=== PATIENT | male | born 1960 | race Hispanic/Latino ===

== ENCOUNTER 2022-09-21 19:05 | Inpatient (IN) | payer BC ==
[~2022-09-21] VITALS: Ht 172.7 cm; Wt 120.0 kg
[~2022-09-21 19:05] MED LIST: DICL100T85 PO; IRBE150T51 PO
[2022-09-21 20:00] LABS: BASOPHILS % (AUTO) 0.3 % (0.0-5.0); HEMATOCRIT 48.3 % (42-54); MEAN CORPUSCULAR HEMOGLOBIN 30.5 pg (27.0-33.0); MEAN CORPUSCULAR HGB CONC 35.6 g/dL (32.0-36.0); MEAN CORPUSCULAR VOLUME 85.6 fL (79-99); NEUTROPHILS % (AUTO) 79.4 % (40.0-77.0); PLATELET COUNT (AUTO) 220 K/uL (130-400); RED BLOOD CELL COUNT(AUTO) 5.64 MIL/uL (4.50-6.20); RED CELL DISTRIBUTION WIDTH 12.3 % (11.0-15.5); WHITE BLOOD COUNT (AUTO) 7.8 K/uL (4.8-10.8)
[2022-09-21 20:13] LABS: ALANINE AMINOTRANSFERASE 29 U/L (12-78); ALBUMIN 3.5 g/dL (3.5-5.0); ASPARTATE AMINOTRANSFERASE 19 U/L (10-37); CARBON DIOXIDE 26 mmol/L (21-32); CHLORIDE 93 mmol/L (101-111); CREATININE 1.3 mg/dL (0.5-1.5); GLOMERULAR FILTR. RATE CALC 59 mL/min (>60); POTASSIUM 3.9 mmol/L (3.5-5.1); SODIUM SERUM 133 mmol/L (136-145); UREA NITROGEN, BLOOD 23 mg/dL (7-18)
[2022-09-21 20:15] LABS: LIPASE < 50 U/L (114-286)
[2022-09-21 20:16] LABS: GLUCOSE,RANDOM 431 mg/dL (70-105)
[2022-09-21] MEDS ORDERED: 0.9%NACL 1000ML 1,000 ML IV ONE (20:30)
[2022-09-21] MEDS ORDERED: INSULIN HUMULIN R 100 UNIT/ML 3ML IV ONE (20:30)
[2022-09-21] MEDS ORDERED: MORPHINE 4 MG SYG IM ONE (20:30)
[2022-09-21] MEDS ORDERED: ONDANSETRON 4MG INJ IVP ONE (20:30)
[2022-09-21 21:00] LABS: ABG BASE EXCESS -0.7 mmol/L (-2.0-3.0); ABG HCO3 22.5 mmol/L (21.0-28.0); ABG PCO2 33 mmHg (35-48)
[2022-09-21] MEDS ORDERED: ACETAMINOPHEN 325 MG TAB PO PRN (22:30)
[2022-09-21] MEDS ORDERED: ONDANSETRON 4MG INJ IV PRN (22:30)
[2022-09-21 23:06] LABS: INR 1.15 (0.85-1.15); PROTHROMBIN TIME 12.4 SEC (9.6-11.6)
[2022-09-21 23:18] LABS: APPEARANCE,URINE CLEAR (CLEAR); BILIRUBIN,URINE NEGATIVE (NEGATIVE); COLOR,URINE LIGHT-YELLOW (YELLOW); GLUCOSE, URINE (UA) >=1000 mg/dL (NEGATIVE); KETONES,URINE 5 mg/dL (NEGATIVE); LEUKOCYTE ESTERASE ,URINE NEGATIVE Leu/uL (NEGATIVE); MUCUS,URINE RARE LPF (None Seen); NITRATE,URINE NEGATIVE (NEGATIVE); OCCULT BLOOD,URINE SMALL (NEGATIVE); PROTEIN,URINE 30 mg/dL (NEGATIVE); SQUAMOUS EPITHELIAL CELL,UR RARE /HPF (0-2); UROBILINOGEN,URINE 0.2 mg/dL (0.2-1.0)
[2022-09-21] MEDS: LACTATED RINGERS 1000ML 1,000 ML IV SCH (23:43)
[2022-09-21] MEDS: MORPHINE 4 MG SYG IV PRN (23:43)
[2022-09-22 02:53] LABS: BASOPHILS % (AUTO) 0.6 % (0.0-5.0); HEMATOCRIT 44.7 % (42-54); LYMPHOCYTES % (AUTO) 17.1 % (21.0-51.0); MEAN CORPUSCULAR HEMOGLOBIN 30.8 pg (27.0-33.0); MEAN CORPUSCULAR HGB CONC 35.1 g/dL (32.0-36.0); MEAN CORPUSCULAR VOLUME 87.6 fL (79-99); MONOCYTES % (AUTO) 19.1 % (3.0-13.0); NEUTROPHILS % (AUTO) 62.8 % (40.0-77.0); PLATELET COUNT (AUTO) 197 K/uL (130-400); RED CELL DISTRIBUTION WIDTH 12.3 % (11.0-15.5); WHITE BLOOD COUNT (AUTO) 5.2 K/uL (4.8-10.8)
[2022-09-22] MEDS ORDERED: ATOR40TA69 PO (03:03)
[2022-09-22] MEDS ORDERED: METO50TA18 PO (03:03)
[2022-09-22] MEDS ORDERED: ASPI-1026 PO (03:03)
[2022-09-22] MEDS ORDERED: IRBE300T43 PO (03:03)
[2022-09-22] MEDS ORDERED: HYDR12.54 PO (03:03)
[2022-09-22] MEDS ORDERED: METF-444 PO (03:03)
[2022-09-22 03:21] LABS: CREATININE 1.2 mg/dL (0.5-1.5); MAGNESIUM 1.6 mg/dL (1.80-2.40); PHOSPHORUS 4.2 mg/dL (2.5-4.9); POTASSIUM 3.7 mmol/L (3.5-5.1)
[2022-09-22 03:48] LABS: HEMOGLOBIN A1C 12.8 % (4.0-6.0)
[2022-09-22 04:00] VITALS: BP 155/97
[2022-09-22] MEDS ORDERED: LIDOCAINE HCL-MPF 1% 2ML VIAL IV PRN (04:30)
[2022-09-22] MEDS ORDERED: MAGNESIUM 2GM PREMIX 50ML 50 ML IV ONE (04:50)
[2022-09-22] MEDS ORDERED: MAGNESIUM 2GM PREMIX 50ML 50 ML IV PRN (05:30)
[2022-09-22] MEDS: MORPHINE 2 MG SYG IV PRN ×3 (05:31→17:09)
[2022-09-22] MEDS: METOCLOPRAMIDE 10 MG/2 ML VIAL IVP SCH ×3 (06:31→16:56)
[2022-09-22] MEDS: POTASSIUM CHLORIDE 10MEQ/100ML 100 ML IV PRN (06:32)
[2022-09-22] MEDS: INSULIN HUMULIN R 100 UNIT/ML 3ML SQ SCH ×4 (06:35→21:41)
[2022-09-22 07:30] VITALS: BP 151/95
[2022-09-22] MEDS: FAMOTIDINE 20MG VIAL IV SCH (08:12)
[2022-09-22 11:30] VITALS: BP 144/89
[2022-09-22] MEDS: LACTATED RINGERS 1000ML 1,000 ML IV SCH ×2 (14:49→22:23)
[2022-09-22 15:30] VITALS: BP 133/83
[2022-09-22 20:17] VITALS: BP 157/81
[2022-09-22] MEDS: METOPROLOL TARTRATE 50 MG TAB PO SCH (20:53)
[2022-09-22] MEDS: MORPHINE 4 MG SYG IV PRN (21:01)
[2022-09-22] MEDS: INSULIN GLARGINE 100 UNITS/ML 10 ML VIAL SQ SCH (21:37)
[2022-09-23] VITALS (7 sets, daily range): BP systolic 133–181; BP diastolic 78–102
[2022-09-23] MEDS: LACTATED RINGERS 1000ML 1,000 ML IV SCH ×3 (04:02→16:40)
[2022-09-23] MEDS: MORPHINE 2 MG SYG IV PRN ×3 (05:09→16:31)
[2022-09-23] MEDS: INSULIN HUMULIN R 100 UNIT/ML 3ML SQ SCH ×4 (06:20→20:51)
[2022-09-23] MEDS: ATORVASTATIN 40 MG TABLET PO SCH (08:16)
[2022-09-23] MEDS: ASPIRIN 81MG CHEW TAB PO SCH (08:16)
[2022-09-23] MEDS: METOPROLOL TARTRATE 50 MG TAB PO SCH ×2 (08:16→20:47)
[2022-09-23] MEDS: FAMOTIDINE 20MG VIAL IV SCH (08:16)
[2022-09-23] MEDS: HYDROCHLOROTHIAZIDE 25 MG TABLET PO SCH (08:16)
[2022-09-23] MEDS ORDERED: ASPIRIN 325MG TAB PO SCH (09:00)
[2022-09-23] MEDS: INSULIN GLARGINE 100 UNITS/ML 10 ML VIAL SQ SCH (20:50)
[2022-09-23] MEDS: MORPHINE 4 MG SYG IV PRN (23:24)
[2022-09-24] MEDS: LACTATED RINGERS 1000ML 1,000 ML IV SCH ×4 (00:02→20:15)
[2022-09-24 04:23] VITALS: BP 140/99
[2022-09-24] MEDS: MORPHINE 2 MG SYG IV PRN (05:45)
[2022-09-24] MEDS: INSULIN HUMULIN R 100 UNIT/ML 3ML SQ SCH ×4 (06:13→21:13)
[2022-09-24 07:35] VITALS: BP 149/99
[2022-09-24] MEDS: METOPROLOL TARTRATE 50 MG TAB PO SCH ×2 (09:27→20:14)
[2022-09-24] MEDS: FAMOTIDINE 20MG VIAL IV SCH (09:27)
[2022-09-24] MEDS: ASPIRIN 81MG CHEW TAB PO SCH (09:27)
[2022-09-24] MEDS: ATORVASTATIN 40 MG TABLET PO SCH (09:27)
[2022-09-24] MEDS: HYDROCHLOROTHIAZIDE 25 MG TABLET PO SCH (09:28)
[2022-09-24] MEDS: MORPHINE 4 MG SYG IV PRN ×2 (09:53→17:44)
[2022-09-24 11:09] VITALS: BP 131/86
[2022-09-24 15:08] VITALS: BP 134/81
[2022-09-24] MEDS: INSULIN GLARGINE 100 UNITS/ML 10 ML VIAL SQ SCH (21:13)
[2022-09-24 21:45] VITALS: BP 143/83
[2022-09-25] VITALS (30 sets, daily range): BP systolic 90–151; BP diastolic 56–95
[2022-09-25] MEDS: LACTATED RINGERS 1000ML 1,000 ML IV SCH ×2 (02:42→16:00)
[2022-09-25] MEDS: INSULIN HUMULIN R 100 UNIT/ML 3ML SQ SCH ×5 (06:42→21:32)
[2022-09-25] MEDS: ATORVASTATIN 40 MG TABLET PO SCH (08:26)
[2022-09-25] MEDS: ASPIRIN 81MG CHEW TAB PO SCH (08:27)
[2022-09-25] MEDS: HYDROCHLOROTHIAZIDE 25 MG TABLET PO SCH (08:27)
[2022-09-25] MEDS: METOPROLOL TARTRATE 50 MG TAB PO SCH ×2 (08:27→21:30)
[2022-09-25] MEDS: FAMOTIDINE 20MG VIAL IV SCH (08:28)
[2022-09-25] MEDS ORDERED: KETOROLAC 30MG VIAL (30MG/ML) ONE ×2 (10:04→11:55)
[2022-09-25] MEDS ORDERED: LIDOCAINE HCL-MPF 1% 5ML AMP IJ ONE (10:05)
[2022-09-25] MEDS ORDERED: PROPOFOL 10 MG/ML 20ML VIAL IV ONE (10:05)
[2022-09-25] MEDS ORDERED: MIDAZOLAM HCL 1 MG/ML 2ML VIAL ONE ×2 (10:06→14:19)
[2022-09-25] MEDS ORDERED: ROCURONIUM 10MG/1ML SYR 10 MG/ML ML ONE (10:06)
[2022-09-25] MEDS ORDERED: FENTANYL CITRATE PF 50 MCG/1 ML 5ML AMP IV ONE (10:07)
[2022-09-25] MEDS ORDERED: PHENYLEPHRINE HCL 10 MG/ML 1ML VIAL IV ONE (10:08)
[2022-09-25] MEDS ORDERED: ALBUMIN (HUMAN) 5% 250 ML IV ONE ×2 (10:33→10:52)
[2022-09-25] MEDS ORDERED: ONDANSETRON 4MG INJ ONE (11:55)
[2022-09-25] MEDS ORDERED: SUCCINYLCHOLINE CHLORIDE 20 MG/ML 10 ML VIAL ONE (11:55)
[2022-09-25] MEDS ORDERED: LABETALOL 20MG VIAL IV ONE (12:06)
[2022-09-25] MEDS ORDERED: SUGAMMADEX SODIUM 200 MG/2 ML VIAL IV ONE (12:06)
[2022-09-25] MEDS ORDERED: HYDROMORPHONE 1 MG INJ ONE (14:25)
[2022-09-25] MEDS ORDERED: HALOPERIDOL INJ 5 MG/ML VIAL IV SCH (14:43)
[2022-09-25] MEDS: CEFAZOLIN SODIUM 2 GM VIAL IVPB SCH (16:36)
[2022-09-25] MEDS: KETOROLAC 30MG VIAL (30MG/ML) IVP SCH (17:39)
[2022-09-25] MEDS: INSULIN GLARGINE 100 UNITS/ML 10 ML VIAL SQ SCH (21:31)
[2022-09-26] VITALS: BP 103/71
[2022-09-26] MEDS: KETOROLAC 30MG VIAL (30MG/ML) IVP SCH ×4 (02:19→17:50)
[2022-09-26] MEDS: LACTATED RINGERS 1000ML 1,000 ML IV SCH (02:19)
[2022-09-26] MEDS: CEFAZOLIN SODIUM 2 GM VIAL IVPB SCH ×3 (02:20→19:12)
[2022-09-26 04:00] VITALS: BP 96/61
[2022-09-26 05:36] LABS: BASOPHILS % (AUTO) 0.9 % (0.0-5.0); EOSINOPHILS % (AUTO) 0.4 % (0.0-8.0); MEAN CORPUSCULAR HEMOGLOBIN 30.1 pg (27.0-33.0); MEAN CORPUSCULAR HGB CONC 33.9 g/dL (32.0-36.0); MEAN CORPUSCULAR VOLUME 88.9 fL (79-99); MONOCYTES % (AUTO) 11.6 % (3.0-13.0); NEUTROPHILS % (AUTO) 77.3 % (40.0-77.0); PLATELET COUNT (AUTO) 199 K/uL (130-400); RED BLOOD CELL COUNT(AUTO) 4.05 MIL/uL (4.50-6.20); RED CELL DISTRIBUTION WIDTH 12.5 % (11.0-15.5); WHITE BLOOD COUNT (AUTO) 12.9 K/uL (4.8-10.8)
[2022-09-26 05:51] LABS: ALBUMIN 1.9 g/dL (3.5-5.0); CREATININE 1.2 mg/dL (0.5-1.5); MAGNESIUM 1.5 mg/dL (1.80-2.40); PHOSPHORUS 3.5 mg/dL (2.5-4.9); TOTAL PROTEIN, SERUM 4.8 g/dL (6.0-8.3)
[2022-09-26] MEDS: INSULIN HUMULIN R 100 UNIT/ML 3ML SQ SCH ×3 (06:50→19:12)
[2022-09-26 08:00] VITALS: BP 98/60
[2022-09-26] MEDS: ATORVASTATIN 40 MG TABLET PO SCH (08:37)
[2022-09-26] MEDS: METOPROLOL TARTRATE 50 MG TAB PO SCH ×2 (08:38→21:34)
[2022-09-26] MEDS: FAMOTIDINE 20MG VIAL IV SCH (08:50)
[2022-09-26 08:56] LABS: ABG BASE EXCESS 6.1 mmol/L (-2.0-3.0); ABG HCO3 27.5 mmol/L (21.0-28.0); ABG OXYGEN SATURATION 98.3 % (95.0-99.0); ABG PCO2 31 mmHg (35-48)
[2022-09-26] MEDS ORDERED: MAGNESIUM 2GM PREMIX 50ML 50 ML IV PRN (09:00)
[2022-09-26] MEDS ORDERED: 0.9%NACL 1000ML 1,000 ML IV SCH (09:00)
[2022-09-26] MEDS ORDERED: ZOSYN 3.375GM +NS 50ML IV SCH (09:00)
[2022-09-26 11:24] VITALS: BP 97/57
[2022-09-26] MEDS: ZOSYN 3.375GM +NS 50ML IV SCH ×2 (13:13→21:34)
[2022-09-26 16:00] VITALS: BP 114/72
[2022-09-26] MEDS: POTASSIUM CHLORIDE 10MEQ/100ML 100 ML IV PRN (16:39)
[2022-09-26] MEDS ORDERED: POTASSIUM CHLORIDE 10% ELIXIR 20 MEQ/15 ML UDCUP PO ONE (17:00)
[2022-09-26 19:44] LABS: CREATININE 1.2 mg/dL (0.5-1.5); MAGNESIUM 2.1 mg/dL (1.80-2.40)
[2022-09-26 20:00] VITALS: BP 91/53
[2022-09-26] MEDS: POTASSIUM CHLORIDE 20MEQ/100ML 100 ML IV PRN (21:29)
[2022-09-26] MEDS: LIDOCAINE HCL-MPF 1% 2ML VIAL IV PRN (21:33)
[2022-09-26] MEDS: INSULIN GLARGINE 100 UNITS/ML 10 ML VIAL SQ SCH (21:43)
[2022-09-27] VITALS: BP 107/69
[2022-09-27] MEDS: POTASSIUM CHLORIDE 20MEQ/100ML 100 ML IV PRN (02:10)
[2022-09-27] MEDS: LIDOCAINE HCL-MPF 1% 2ML VIAL IV PRN (02:10)
[2022-09-27] MEDS: KETOROLAC 30MG VIAL (30MG/ML) IVP SCH ×4 (02:13→18:00)
[2022-09-27] MEDS: CEFAZOLIN SODIUM 2 GM VIAL IVPB SCH ×3 (02:14→18:59)
[2022-09-27 04:00] VITALS: BP 110/62
[2022-09-27 05:31] LABS: BASOPHILS % (AUTO) 0.3 % (0.0-5.0); EOSINOPHILS % (AUTO) 1.6 % (0.0-8.0); HEMATOCRIT 34.5 % (42-54); LYMPHOCYTES % (AUTO) 5.5 % (21.0-51.0); MEAN CORPUSCULAR HEMOGLOBIN 29.7 pg (27.0-33.0); MEAN CORPUSCULAR VOLUME 89.8 fL (79-99); MONOCYTES % (AUTO) 4.6 % (3.0-13.0); NEUTROPHILS % (AUTO) 86.4 % (40.0-77.0); PLATELET COUNT (AUTO) 203 K/uL (130-400); RED BLOOD CELL COUNT(AUTO) 3.84 MIL/uL (4.50-6.20); RED CELL DISTRIBUTION WIDTH 12.4 % (11.0-15.5)
[2022-09-27] MEDS: ZOSYN 3.375GM +NS 50ML IV SCH ×3 (05:35→20:37)
[2022-09-27 05:48] LABS: ALBUMIN 1.7 g/dL (3.5-5.0); CREATININE 1.2 mg/dL (0.5-1.5); MAGNESIUM 2.1 mg/dL (1.80-2.40); PHOSPHORUS 2.3 mg/dL (2.5-4.9); POTASSIUM 3.5 mmol/L (3.5-5.1); TOTAL PROTEIN, SERUM 5.1 g/dL (6.0-8.3)
[2022-09-27 05:53] LABS: B-TYPE NATRIURETIC PEPTIDE 176 pg/mL (0-100)
[2022-09-27 05:54] LABS: CRP QUANTITATIVE 450.7 mg/L (0.00-9.0)
[2022-09-27] MEDS: INSULIN HUMULIN R 100 UNIT/ML 3ML SQ SCH ×4 (06:00→19:01)
[2022-09-27 07:00] VITALS: BP 110/68
[2022-09-27 07:06] LABS: ERYTHROCYTE SEDIMENTATION RATE 66 MM/HR (0-20)
[2022-09-27] MEDS: ATORVASTATIN 40 MG TABLET PO SCH (10:04)
[2022-09-27] MEDS: FAMOTIDINE 20MG VIAL IV SCH (10:04)
[2022-09-27 11:00] VITALS: BP 138/71
[2022-09-27] MEDS: METOPROLOL TARTRATE 50 MG TAB PO SCH ×2 (13:26→20:38)
[2022-09-27 16:00] VITALS: BP 144/95
[2022-09-27] MEDS: NEUTRA-PHOS PACKET 1 EACH PO SCH ×2 (17:00→21:04)
[2022-09-27 20:00] VITALS: BP 148/78
[2022-09-27] MEDS: INSULIN GLARGINE 100 UNITS/ML 10 ML VIAL SQ SCH (20:38)
[2022-09-28] VITALS (7 sets, daily range): BP systolic 116–146; BP diastolic 67–103
[2022-09-28] MEDS: KETOROLAC 30MG VIAL (30MG/ML) IVP SCH ×4 (00:29→19:00)
[2022-09-28] MEDS: CEFAZOLIN SODIUM 2 GM VIAL IVPB SCH ×3 (00:29→19:47)
[2022-09-28] MEDS ORDERED: SIMETHICONE 80 MG TAB.CHEW ONE (02:50)
[2022-09-28] MEDS ORDERED: SIMETHICONE 80 MG TAB.CHEW PO PRN (03:00)
[2022-09-28] MEDS: INSULIN HUMULIN R 100 UNIT/ML 3ML SQ SCH ×4 (05:17→19:51)
[2022-09-28] MEDS: ZOSYN 3.375GM +NS 50ML IV SCH ×3 (05:17→21:13)
[2022-09-28 05:35] LABS: BASOPHILS % (AUTO) 0.4 % (0.0-5.0); EOSINOPHILS % (AUTO) 1.9 % (0.0-8.0); HEMATOCRIT 34.4 % (42-54); LYMPHOCYTES % (AUTO) 4.7 % (21.0-51.0); MEAN CORPUSCULAR HEMOGLOBIN 30.3 pg (27.0-33.0); MEAN CORPUSCULAR HGB CONC 33.4 g/dL (32.0-36.0); MEAN CORPUSCULAR VOLUME 90.8 fL (79-99); MONOCYTES % (AUTO) 4.6 % (3.0-13.0); NEUTROPHILS % (AUTO) 86.7 % (40.0-77.0); PLATELET COUNT (AUTO) 211 K/uL (130-400); RED BLOOD CELL COUNT(AUTO) 3.79 MIL/uL (4.50-6.20); RED CELL DISTRIBUTION WIDTH 12.4 % (11.0-15.5); WHITE BLOOD COUNT (AUTO) 25.2 K/uL (4.8-10.8)
[2022-09-28 06:21] LABS: ALBUMIN 1.6 g/dL (3.5-5.0); MAGNESIUM 2.3 mg/dL (1.80-2.40); PHOSPHORUS 2.6 mg/dL (2.5-4.9); TOTAL PROTEIN, SERUM 5.7 g/dL (6.0-8.3)
[2022-09-28 06:26] LABS: POTASSIUM 2.9 mmol/L (3.5-5.1)
[2022-09-28] MEDS ORDERED: KCL 20 MEQ ERTAB PO PRN (06:30)
[2022-09-28] MEDS: POTASSIUM CHLORIDE 10% ELIXIR 20 MEQ/15 ML UDCUP PO PRN ×2 (06:38→09:18)
[2022-09-28 06:39] LABS: CRP QUANTITATIVE 438.7 mg/L (0.00-9.0)
[2022-09-28] MEDS: NEUTRA-PHOS PACKET 1 EACH PO SCH ×4 (09:00→21:59)
[2022-09-28] MEDS: POTASSIUM CHLORIDE 10MEQ/100ML 100 ML IV PRN (09:18)
[2022-09-28] MEDS: LIDOCAINE HCL-MPF 1% 2ML VIAL IV PRN (09:18)
[2022-09-28] MEDS: Vitamin B Complex/Vit C/Folic Acid PO SCH (09:19)
[2022-09-28] MEDS: FAMOTIDINE 20MG VIAL IV SCH (09:19)
[2022-09-28] MEDS: METOPROLOL TARTRATE 50 MG TAB PO SCH ×2 (09:20→21:13)
[2022-09-28] MEDS: ATORVASTATIN 40 MG TABLET PO SCH (09:20)
[2022-09-28] MEDS ORDERED: VANCOMYCIN 1G/250ML KIT 250 ML IV SCH (13:00)
[2022-09-28] MEDS ORDERED: VANCOMYCIN PROTOCOL PER PHARMACY IV PRN (13:00)
[2022-09-28] MEDS: VANCOMYCIN 1.25 GM/250 ML BAG 250 ML IV SCH (13:00)
[2022-09-28] MEDS ORDERED: VANCOMYCIN 1G/250ML KIT 250 ML IV ONE (13:00)
[2022-09-28] MEDS ORDERED: VANCOMYCIN PROTOCOL PER PHARMACY IV SCH (13:00)
[2022-09-28] MEDS: FLUCONAZOLE 200 MG/NS 100 ML IV SCH (13:02)
[2022-09-28] MEDS ORDERED: IOHEXOL 350 MG/ML 100ML INFUS..BTL IV ONE (16:58)
[2022-09-28] MEDS ORDERED: DIATR MEGLU/DIATRIZOATE SODIUM 30 ML BOTTLE ONE (16:58)
[2022-09-28] MEDS: POTASSIUM CHLORIDE 20MEQ/10ML 20 MEQ in 0.9%NACL 1000ML 1,000 ML IV SCH ×2 (19:46→23:06)
[2022-09-28] MEDS: INSULIN GLARGINE 100 UNITS/ML 10 ML VIAL SQ SCH (21:14)
[2022-09-28 21:29] LABS: ABG BASE EXCESS 1.8 mmol/L (-2.0-3.0); ABG OXYGEN SATURATION 95.7 % (95.0-99.0); ABG PCO2 31 mmHg (35-48)
[2022-09-29] VITALS (9 sets, daily range): BP systolic 119–175; BP diastolic 60–95
[2022-09-29] MEDS: KETOROLAC 30MG VIAL (30MG/ML) IVP SCH ×4 (00:12→18:38)
[2022-09-29] MEDS: CEFAZOLIN SODIUM 2 GM VIAL IVPB SCH ×2 (00:12→09:47)
[2022-09-29] MEDS: VANCOMYCIN 1.25 GM/250 ML BAG 250 ML IV SCH ×2 (01:25→13:06)
[2022-09-29 04:38] LABS: BASOPHILS % (AUTO) 0.3 % (0.0-5.0); EOSINOPHILS % (AUTO) 2.3 % (0.0-8.0); HEMATOCRIT 32.1 % (42-54); LYMPHOCYTES % (AUTO) 5.4 % (21.0-51.0); MEAN CORPUSCULAR HEMOGLOBIN 29.9 pg (27.0-33.0); MEAN CORPUSCULAR VOLUME 87.9 fL (79-99); MONOCYTES % (AUTO) 4.6 % (3.0-13.0); PLATELET COUNT (AUTO) 224 K/uL (130-400); RED BLOOD CELL COUNT(AUTO) 3.65 MIL/uL (4.50-6.20); RED CELL DISTRIBUTION WIDTH 12.2 % (11.0-15.5); WHITE BLOOD COUNT (AUTO) 19.2 K/uL (4.8-10.8)
[2022-09-29] MEDS: ZOSYN 3.375GM +NS 50ML IV SCH ×3 (04:58→20:17)
[2022-09-29 05:12] LABS: ALBUMIN 1.3 g/dL (3.5-5.0); POTASSIUM 3.2 mmol/L (3.5-5.1); TOTAL PROTEIN, SERUM 5.3 g/dL (6.0-8.3)
[2022-09-29] MEDS: INSULIN HUMULIN R 100 UNIT/ML 3ML SQ SCH ×4 (05:45→18:00)
[2022-09-29 06:18] LABS: CRP QUANTITATIVE 364.5 mg/L (0.00-9.0)
[2022-09-29 06:20] LABS: ERYTHROCYTE SEDIMENTATION RATE 71 MM/HR (0-20)
[2022-09-29] MEDS: ATORVASTATIN 40 MG TABLET PO SCH (09:47)
[2022-09-29] MEDS: FAMOTIDINE 20MG VIAL IV SCH (09:47)
[2022-09-29] MEDS: Vitamin B Complex/Vit C/Folic Acid PO SCH (09:47)
[2022-09-29] MEDS: METOPROLOL TARTRATE 50 MG TAB PO SCH ×2 (09:47→20:17)
[2022-09-29] MEDS: POTASSIUM CHLORIDE 20MEQ/10ML 20 MEQ in 0.9%NACL 1000ML 1,000 ML IV SCH ×2 (10:01→19:51)
[2022-09-29] MEDS: FLUCONAZOLE 200 MG/NS 100 ML IV SCH (13:02)
[2022-09-29 19:31] LABS: INR 1.05 (0.85-1.15); PROTHROMBIN TIME 11.4 SEC (9.6-11.6)
[2022-09-29 19:33] LABS: PARTIAL THROMBOPLASTIN TIME 29.4 SEC (26.3-35.5)
[2022-09-29] MEDS ORDERED: METOCLOPRAMIDE 10 MG/2 ML VIAL IVP SCH (20:00)
[2022-09-29] MEDS: INSULIN GLARGINE 100 UNITS/ML 10 ML VIAL SQ SCH (21:00)
[2022-09-30] VITALS (23 sets, daily range): BP systolic 124–168; BP diastolic 76–99
[2022-09-30] MEDS: LIDOCAINE HCL-MPF 1% 2ML VIAL IV PRN ×2 (00:22→03:14)
[2022-09-30] MEDS: POTASSIUM CHLORIDE 20MEQ/100ML 100 ML IV PRN ×2 (00:23→03:13)
[2022-09-30] MEDS: KETOROLAC 30MG VIAL (30MG/ML) IVP SCH ×3 (00:45→13:08)
[2022-09-30] MEDS: VANCOMYCIN 1.25 GM/250 ML BAG 250 ML IV SCH (01:54)
[2022-09-30] MEDS: POTASSIUM CHLORIDE 20MEQ/10ML 20 MEQ in 0.9%NACL 1000ML 1,000 ML IV SCH ×2 (05:24→15:30)
[2022-09-30] MEDS: INSULIN HUMULIN R 100 UNIT/ML 3ML SQ SCH ×4 (06:00→18:00)
[2022-09-30 06:06] LABS: BASOPHILS % (AUTO) 0.2 % (0.0-5.0); EOSINOPHILS % (AUTO) 2.9 % (0.0-8.0); HEMATOCRIT 33.2 % (42-54); LYMPHOCYTES % (AUTO) 5.5 % (21.0-51.0); MEAN CORPUSCULAR HGB CONC 33.1 g/dL (32.0-36.0); MEAN CORPUSCULAR VOLUME 90.5 fL (79-99); MONOCYTES % (AUTO) 5.6 % (3.0-13.0); PLATELET COUNT (AUTO) 257 K/uL (130-400); RED BLOOD CELL COUNT(AUTO) 3.67 MIL/uL (4.50-6.20); RED CELL DISTRIBUTION WIDTH 12.4 % (11.0-15.5)
[2022-09-30] MEDS: ZOSYN 3.375GM +NS 50ML IV SCH ×3 (06:17→22:16)
[2022-09-30 06:21] LABS: ALBUMIN 1.3 g/dL (3.5-5.0); POTASSIUM 3.8 mmol/L (3.5-5.1); TOTAL PROTEIN, SERUM 5.9 g/dL (6.0-8.3)
[2022-09-30] MEDS: ATORVASTATIN 40 MG TABLET PO SCH (09:00)
[2022-09-30] MEDS: Vitamin B Complex/Vit C/Folic Acid PO SCH (09:00)
[2022-09-30] MEDS: METOPROLOL TARTRATE 50 MG TAB PO SCH ×2 (09:08→19:46)
[2022-09-30] MEDS: FAMOTIDINE 20MG VIAL IV SCH (09:08)
[2022-09-30] MEDS: FLUCONAZOLE 200 MG/NS 100 ML IV SCH (13:06)
[2022-09-30] MEDS ORDERED: SUCCINYLCHOLINE CHLORIDE 20 MG/ML 10 ML VIAL ONE (13:51)
[2022-09-30] MEDS ORDERED: PROPOFOL 10 MG/ML 20ML VIAL IV ONE (13:52)
[2022-09-30] MEDS ORDERED: FENTANYL CITRATE PF 50 MCG/1 ML 5ML AMP IV ONE (13:52)
[2022-09-30] MEDS ORDERED: ROCURONIUM 10MG/1ML SYR 10 MG/ML ML ONE (13:52)
[2022-09-30] MEDS ORDERED: MIDAZOLAM HCL 1 MG/ML 2ML VIAL ONE (14:22)
[2022-09-30] MEDS ORDERED: ONDANSETRON 4MG INJ ONE (14:22)
[2022-09-30] MEDS ORDERED: PANTOPRAZOLE 80 MG/NS 100ML IVP SCH ×2 (15:30)
[2022-09-30] MEDS ORDERED: PANTOPRAZOLE 40 MG/VIAL IVP ONE (15:30)
[2022-09-30] MEDS ORDERED: GLYCOPYRROLATE 1 MG/5 ML SYRINGE ONE (15:35)
[2022-09-30] MEDS ORDERED: NEOSTIGMINE 5MG/5ML SYR IV ONE (15:35)
[2022-09-30] MEDS ORDERED: FENTANYL CITRATE PF 50 MCG/1 ML 2ML VIAL ONE (15:44)
[2022-09-30] MEDS ORDERED: COMPOUND IV REFRIGERATED 1 EACH IVSOLN MISC PRN (19:00)
[2022-09-30] MEDS ORDERED: VANCOMYCIN PROTOCOL PER PHARMACY IV SCH (19:00)
[2022-09-30] MEDS: INSULIN GLARGINE 100 UNITS/ML 10 ML VIAL SQ SCH (19:46)
[2022-09-30] MEDS ORDERED: M.V.I. IV [ADULT] 10 ML, MULTITRACE-4 ADULT 10ML VIAL 3 ML in CLINIMIX-E 5%AA /D15%W 2... IV SCH (20:00)
[2022-09-30] MEDS: VANCOMYCIN 1.5 GM/250 ML BAG 250 ML IV SCH (22:16)
[2022-10-01] VITALS: BP 143/90
[2022-10-01] MEDS: INSULIN HUMULIN R 100 UNIT/ML 3ML SQ SCH ×2 (01:24→06:32)
[2022-10-01 04:00] VITALS: BP 141/83
[2022-10-01] MEDS: ZOSYN 3.375GM +NS 50ML IV SCH ×3 (06:08→21:46)
[2022-10-01 06:22] LABS: BASOPHILS % (AUTO) 0.2 % (0.0-5.0); EOSINOPHILS % (AUTO) 0.1 % (0.0-8.0); HEMATOCRIT 34.3 % (42-54); LYMPHOCYTES % (AUTO) 5.1 % (21.0-51.0); MEAN CORPUSCULAR HEMOGLOBIN 29.7 pg (27.0-33.0); MEAN CORPUSCULAR HGB CONC 32.9 g/dL (32.0-36.0); MONOCYTES % (AUTO) 5.9 % (3.0-13.0); NEUTROPHILS % (AUTO) 87.7 % (40.0-77.0); PLATELET COUNT (AUTO) 301 K/uL (130-400); RED BLOOD CELL COUNT(AUTO) 3.81 MIL/uL (4.50-6.20); RED CELL DISTRIBUTION WIDTH 12.5 % (11.0-15.5); WHITE BLOOD COUNT (AUTO) 16.6 K/uL (4.8-10.8)
[2022-10-01 06:36] LABS: ALBUMIN 1.2 g/dL (3.5-5.0); CREATININE 1.4 mg/dL (0.5-1.5); MAGNESIUM 2.4 mg/dL (1.80-2.40); POTASSIUM 4.8 mmol/L (3.5-5.1); TOTAL PROTEIN, SERUM 5.9 g/dL (6.0-8.3)
[2022-10-01 08:00] VITALS: BP 168/96
[2022-10-01] MEDS: ATORVASTATIN 40 MG TABLET PO SCH (09:00)
[2022-10-01] MEDS: Vitamin B Complex/Vit C/Folic Acid PO SCH (09:00)
[2022-10-01] MEDS: METOPROLOL TARTRATE 50 MG TAB PO SCH ×2 (09:00→20:19)
[2022-10-01] MEDS ORDERED: CHLORPROMAZINE HCL 25 MG/ML 1ML AMP IVP SCH (10:00)
[2022-10-01] MEDS: FAMOTIDINE 20MG VIAL IV SCH (10:35)
[2022-10-01] MEDS: VANCOMYCIN 1.5 GM/250 ML BAG 250 ML IV SCH ×2 (10:36→20:19)
[2022-10-01 16:00] VITALS: BP 148/81
[2022-10-01] MEDS: FLUCONAZOLE 200 MG/NS 100 ML IV SCH (16:00)
[2022-10-01] MEDS ORDERED: PHARMACY COMMUNICATION MISC SCH (17:30)
[2022-10-01] MEDS ORDERED: M.V.I. IV [ADULT] 10 ML, MULTITRACE-4 ADULT 10ML VIAL 3 ML in CLINIMIX-E 5%AA /D15%W 2... IV SCH (19:00)
[2022-10-01 20:00] VITALS: BP 151/89
[2022-10-01] MEDS: INSULIN GLARGINE 100 UNITS/ML 10 ML VIAL SQ SCH (20:21)
[2022-10-01] MEDS: CHLORPROMAZINE HCL 25 MG/ML 1ML AMP IM SCH (23:37)
[2022-10-02] VITALS (8 sets, daily range): BP systolic 128–176; BP diastolic 76–95
[2022-10-02] MEDS: INSULIN HUMULIN R 100 UNIT/ML 3ML SQ SCH ×4 (00:36→18:58)
[2022-10-02] MEDS: ZOSYN 3.375GM +NS 50ML IV SCH ×3 (04:34→20:37)
[2022-10-02 05:47] LABS: BASOPHILS % (AUTO) 0.2 % (0.0-5.0); EOSINOPHILS % (AUTO) 2.4 % (0.0-8.0); HEMATOCRIT 32.3 % (42-54); LYMPHOCYTES % (AUTO) 7.3 % (21.0-51.0); MEAN CORPUSCULAR HEMOGLOBIN 29.6 pg (27.0-33.0); MEAN CORPUSCULAR HGB CONC 32.5 g/dL (32.0-36.0); MONOCYTES % (AUTO) 7.9 % (3.0-13.0); NEUTROPHILS % (AUTO) 81.4 % (40.0-77.0); PLATELET COUNT (AUTO) 343 K/uL (130-400); RED BLOOD CELL COUNT(AUTO) 3.55 MIL/uL (4.50-6.20); RED CELL DISTRIBUTION WIDTH 12.5 % (11.0-15.5); WHITE BLOOD COUNT (AUTO) 11.8 K/uL (4.8-10.8)
[2022-10-02 06:13] LABS: CREATININE 1.6 mg/dL (0.5-1.5); MAGNESIUM 2.4 mg/dL (1.80-2.40); POTASSIUM 4.3 mmol/L (3.5-5.1)
[2022-10-02] MEDS: FAMOTIDINE 20MG VIAL IV SCH (08:31)
[2022-10-02] MEDS: ATORVASTATIN 40 MG TABLET PO SCH (08:31)
[2022-10-02] MEDS: Vitamin B Complex/Vit C/Folic Acid PO SCH (08:31)
[2022-10-02] MEDS: METOPROLOL TARTRATE 50 MG TAB PO SCH ×2 (08:31→20:23)
[2022-10-02] MEDS: VANCOMYCIN 1.5 GM/250 ML BAG 250 ML IV SCH ×2 (09:00→20:37)
[2022-10-02] MEDS: CHLORPROMAZINE HCL 25 MG/ML 1ML AMP IM SCH ×2 (09:22→19:19)
[2022-10-02] MEDS: FAT EMULSIONS 20% 250ML 250 ML IV SCH (11:02)
[2022-10-02] MEDS: M.V.I. IV [ADULT] 10 ML, MULTITRACE-4 ADULT 10ML VIAL 3 ML in CLINIMIX-E 5%AA /D15%W 2... IV SCH (12:10)
[2022-10-02] MEDS: FLUCONAZOLE 200 MG/NS 100 ML IV SCH (14:03)
[2022-10-02] MEDS ORDERED: MORPHINE 4 MG SYG IVP PRN (18:30)
[2022-10-02] MEDS ORDERED: PANTOPRAZOLE 40 MG/VIAL ONE (20:32)
[2022-10-02] MEDS: PANTOPRAZOLE 40 MG/VIAL IVP SCH (20:38)
[2022-10-02] MEDS: INSULIN GLARGINE 100 UNITS/ML 10 ML VIAL SQ SCH (20:44)
[2022-10-02] MEDS: LABETALOL 20MG VIAL IV PRN (20:46)
[2022-10-03 04:16] VITALS: BP 155/83
[2022-10-03] MEDS: ZOSYN 3.375GM +NS 50ML IV SCH ×3 (04:28→20:50)
[2022-10-03] MEDS: M.V.I. IV [ADULT] 10 ML, MULTITRACE-4 ADULT 10ML VIAL 3 ML in CLINIMIX-E 5%AA /D15%W 2... IV SCH (04:33)
[2022-10-03 05:33] LABS: HEMATOCRIT 32.1 % (42-54); MEAN CORPUSCULAR HEMOGLOBIN 30.1 pg (27.0-33.0); MEAN CORPUSCULAR HGB CONC 32.4 g/dL (32.0-36.0); MEAN CORPUSCULAR VOLUME 92.8 fL (79-99); RED BLOOD CELL COUNT(AUTO) 3.46 MIL/uL (4.50-6.20); RED CELL DISTRIBUTION WIDTH 12.7 % (11.0-15.5); WHITE BLOOD COUNT (AUTO) 11.8 K/uL (4.8-10.8)
[2022-10-03] MEDS: CHLORPROMAZINE HCL 25 MG/ML 1ML AMP IM SCH ×2 (05:38→17:19)
[2022-10-03] MEDS: INSULIN HUMULIN R 100 UNIT/ML 3ML SQ SCH ×5 (05:40→23:45)
[2022-10-03 05:47] LABS: CREATININE 1.5 mg/dL (0.5-1.5); POTASSIUM 4.1 mmol/L (3.5-5.1)
[2022-10-03 08:00] VITALS: BP 159/101
[2022-10-03] MEDS: METOPROLOL TARTRATE 50 MG TAB PO SCH ×2 (09:00→20:55)
[2022-10-03] MEDS: ATORVASTATIN 40 MG TABLET PO SCH (09:00)
[2022-10-03] MEDS: Vitamin B Complex/Vit C/Folic Acid PO SCH (09:00)
[2022-10-03] MEDS: PANTOPRAZOLE 40 MG/VIAL IVP SCH ×2 (09:00→20:50)
[2022-10-03] MEDS: FAMOTIDINE 20MG VIAL IV SCH (11:35)
[2022-10-03 12:00] VITALS: BP 181/106
[2022-10-03] MEDS: FLUCONAZOLE 200 MG/NS 100 ML IV SCH (14:45)
[2022-10-03] MEDS: LABETALOL 20MG VIAL IV PRN (14:47)
[2022-10-03] MEDS ORDERED: HYDRALAZINE 20MG/ML VIAL IV PRN (15:00)
[2022-10-03 16:00] VITALS: BP 172/103
[2022-10-03] MEDS ORDERED: BISACODYL 10 MG SUPP.RECT RC ONE (19:30)
[2022-10-03] MEDS ORDERED: PHARMACY COMMUNICATION MISC SCH (19:30)
[2022-10-03] MEDS: VANCOMYCIN 1.5 GM/250 ML BAG 250 ML IV SCH (20:51)
[2022-10-03] MEDS: INSULIN GLARGINE 100 UNITS/ML 10 ML VIAL SQ SCH (20:54)
[2022-10-03 21:16] VITALS: BP 146/86
[2022-10-04 00:21] VITALS: BP 153/84
[2022-10-04] MEDS: ZOSYN 3.375GM +NS 50ML IV SCH ×3 (03:24→21:06)
[2022-10-04] MEDS: CHLORPROMAZINE HCL 25 MG/ML 1ML AMP IM SCH ×2 (03:24→12:23)
[2022-10-04 04:25] VITALS: BP 165/88
[2022-10-04 04:34] LABS: HEMATOCRIT 30.8 % (42-54); MEAN CORPUSCULAR HEMOGLOBIN 29.8 pg (27.0-33.0); MEAN CORPUSCULAR HGB CONC 32.1 g/dL (32.0-36.0); MEAN CORPUSCULAR VOLUME 92.8 fL (79-99); RED BLOOD CELL COUNT(AUTO) 3.32 MIL/uL (4.50-6.20); RED CELL DISTRIBUTION WIDTH 12.5 % (11.0-15.5); WHITE BLOOD COUNT (AUTO) 12.5 K/uL (4.8-10.8)
[2022-10-04 05:01] LABS: CREATININE 1.5 mg/dL (0.5-1.5); MAGNESIUM 1.9 mg/dL (1.80-2.40); POTASSIUM 3.8 mmol/L (3.5-5.1)
[2022-10-04] MEDS: POTASSIUM CHLORIDE 10% ELIXIR 20 MEQ/15 ML UDCUP PO PRN ×2 (05:17→08:26)
[2022-10-04] MEDS: LABETALOL 20MG VIAL IV PRN (05:18)
[2022-10-04] MEDS: INSULIN HUMULIN R 100 UNIT/ML 3ML SQ SCH ×3 (05:22→18:22)
[2022-10-04 08:00] VITALS: BP 149/74
[2022-10-04] MEDS: FAMOTIDINE 20MG VIAL IV SCH (08:26)
[2022-10-04] MEDS: METOPROLOL TARTRATE 50 MG TAB PO SCH ×2 (08:26→23:58)
[2022-10-04] MEDS: PANTOPRAZOLE 40 MG/VIAL IVP SCH ×2 (08:26→21:06)
[2022-10-04] MEDS: Vitamin B Complex/Vit C/Folic Acid PO SCH (08:30)
[2022-10-04] MEDS: ATORVASTATIN 40 MG TABLET PO SCH (08:30)
[2022-10-04] MEDS: FAT EMULSIONS 20% 250ML 250 ML IV SCH (08:40)
[2022-10-04 11:45] VITALS: BP 173/90
[2022-10-04] MEDS: FLUCONAZOLE 200 MG/NS 100 ML IV SCH (12:27)
[2022-10-04 15:40] VITALS: BP 164/91
[2022-10-04] MEDS: M.V.I. IV [ADULT] 10 ML, MULTITRACE-4 ADULT 10ML VIAL 3 ML in CLINIMIX-E 5%AA /D15%W 2... IV SCH (18:51)
[2022-10-04 20:20] VITALS: BP 153/93
[2022-10-04] MEDS: INSULIN GLARGINE 100 UNITS/ML 10 ML VIAL SQ SCH (21:23)
[2022-10-04] MEDS: VANCOMYCIN 1.5 GM/250 ML BAG 250 ML IV SCH (23:56)
[2022-10-05] MEDS: INSULIN HUMULIN R 100 UNIT/ML 3ML SQ SCH ×5 (00:03→21:35)
[2022-10-05 00:14] VITALS: BP 146/94
[2022-10-05] MEDS: ZOSYN 3.375GM +NS 50ML IV SCH ×3 (04:49→21:31)
[2022-10-05 05:06] VITALS: BP 152/89
[2022-10-05 06:12] LABS: MEAN CORPUSCULAR HEMOGLOBIN 29.7 pg (27.0-33.0); MEAN CORPUSCULAR HGB CONC 32.2 g/dL (32.0-36.0); MEAN CORPUSCULAR VOLUME 92.2 fL (79-99); RED BLOOD CELL COUNT(AUTO) 3.47 MIL/uL (4.50-6.20); RED CELL DISTRIBUTION WIDTH 12.4 % (11.0-15.5); WHITE BLOOD COUNT (AUTO) 16.6 K/uL (4.8-10.8)
[2022-10-05 06:33] LABS: ALBUMIN 1.3 g/dL (3.5-5.0); CREATININE 1.5 mg/dL (0.5-1.5)
[2022-10-05 08:00] VITALS: BP 166/107
[2022-10-05] MEDS: Vitamin B Complex/Vit C/Folic Acid PO SCH (09:00)
[2022-10-05] MEDS: ATORVASTATIN 40 MG TABLET PO SCH (09:00)
[2022-10-05] MEDS: METOPROLOL TARTRATE 50 MG TAB PO SCH ×2 (09:47→21:36)
[2022-10-05] MEDS: FAMOTIDINE 20MG VIAL IV SCH (09:47)
[2022-10-05] MEDS: PANTOPRAZOLE 40 MG/VIAL IVP SCH ×2 (09:47→21:31)
[2022-10-05] MEDS ORDERED: DIATR MEGLU/DIATRIZOATE SODIUM 30 ML BOTTLE ONE ×2 (11:58→12:21)
[2022-10-05 12:00] VITALS: BP 154/88
[2022-10-05] MEDS: FLUCONAZOLE 200 MG/NS 100 ML IV SCH (13:00)
[2022-10-05 16:00] VITALS: BP 181/99
[2022-10-05] MEDS: M.V.I. IV [ADULT] 10 ML, MULTITRACE-4 ADULT 10ML VIAL 3 ML in CLINIMIX-E 5%AA /D15%W 2... IV SCH (19:30)
[2022-10-05 20:53] VITALS: BP 176/95
[2022-10-05] MEDS: INSULIN GLARGINE 100 UNITS/ML 10 ML VIAL SQ SCH (21:34)
[2022-10-05] MEDS: VANCOMYCIN 1.5 GM/250 ML BAG 250 ML IV SCH (23:53)
[2022-10-06 00:14] VITALS: BP 131/80
[2022-10-06 04:42] VITALS: BP 132/82
[2022-10-06] MEDS: ZOSYN 3.375GM +NS 50ML IV SCH ×3 (05:22→20:55)
[2022-10-06] MEDS: INSULIN HUMULIN R 100 UNIT/ML 3ML SQ SCH ×3 (06:00→18:00)
[2022-10-06 06:11] LABS: HEMATOCRIT 30.5 % (42-54); MEAN CORPUSCULAR HEMOGLOBIN 29.6 pg (27.0-33.0); MEAN CORPUSCULAR HGB CONC 31.1 g/dL (32.0-36.0); RED BLOOD CELL COUNT(AUTO) 3.21 MIL/uL (4.50-6.20); RED CELL DISTRIBUTION WIDTH 12.5 % (11.0-15.5); WHITE BLOOD COUNT (AUTO) 13.5 K/uL (4.8-10.8)
[2022-10-06 06:38] LABS: ALBUMIN 1.2 g/dL (3.5-5.0); CREATININE 1.4 mg/dL (0.5-1.5); POTASSIUM 3.4 mmol/L (3.5-5.1); TOTAL PROTEIN, SERUM 5.7 g/dL (6.0-8.3)
[2022-10-06 08:45] VITALS: BP 142/84
[2022-10-06] MEDS: METOPROLOL TARTRATE 50 MG TAB PO SCH ×2 (09:02→20:54)
[2022-10-06] MEDS: Vitamin B Complex/Vit C/Folic Acid PO SCH (09:02)
[2022-10-06] MEDS: ATORVASTATIN 40 MG TABLET PO SCH (09:02)
[2022-10-06] MEDS: CHLORPROMAZINE HCL 25 MG/ML 1ML AMP IM SCH (09:03)
[2022-10-06] MEDS: PANTOPRAZOLE 40 MG/VIAL IVP SCH ×2 (09:03→20:54)
[2022-10-06] MEDS: FAMOTIDINE 20MG VIAL IV SCH (09:03)
[2022-10-06] MEDS: FLUCONAZOLE 200 MG/NS 100 ML IV SCH (11:49)
[2022-10-06] MEDS: POTASSIUM CHLORIDE 10% ELIXIR 20 MEQ/15 ML UDCUP PO PRN ×2 (11:49→16:04)
[2022-10-06 12:35] VITALS: BP 134/77
[2022-10-06] MEDS: ENOXAPARIN SODIUM 40 MG/0.4 ML SYRINGE SQ SCH (16:04)
[2022-10-06 16:30] VITALS: BP 144/89
[2022-10-06] MEDS: FAT EMULSIONS 20% 250ML 250 ML IV SCH (18:05)
[2022-10-06] MEDS ORDERED: LOPERAMIDE 1 MG/7.5 ML UDCUP PO SCH (19:30)
[2022-10-06] MEDS ORDERED: M.V.I. IV [ADULT] 10 ML, MULTITRACE-4 ADULT 10ML VIAL 3 ML in CLINIMIX-E 5%AA /D15%W 2... IV ONE (19:30)
[2022-10-06] MEDS ORDERED: LOPERAMIDE 1 MG/7.5 ML UDCUP PO PRN (19:30)
[2022-10-06 20:00] VITALS: BP 139/77
[2022-10-06] MEDS: INSULIN GLARGINE 100 UNITS/ML 10 ML VIAL SQ SCH (21:24)
[2022-10-07] VITALS: BP 156/92
[2022-10-07] MEDS: VANCOMYCIN 1.5 GM/250 ML BAG 250 ML IV SCH (00:05)
[2022-10-07 04:00] VITALS: BP 150/87
[2022-10-07] MEDS: ZOSYN 3.375GM +NS 50ML IV SCH ×3 (05:35→21:53)
[2022-10-07 06:16] LABS: HEMATOCRIT 30.7 % (42-54); MEAN CORPUSCULAR HGB CONC 31.9 g/dL (32.0-36.0); MEAN CORPUSCULAR VOLUME 90.8 fL (79-99); RED BLOOD CELL COUNT(AUTO) 3.38 MIL/uL (4.50-6.20); RED CELL DISTRIBUTION WIDTH 12.4 % (11.0-15.5); WHITE BLOOD COUNT (AUTO) 12.9 K/uL (4.8-10.8)
[2022-10-07 06:31] LABS: CREATININE 1.5 mg/dL (0.5-1.5); POTASSIUM 3.8 mmol/L (3.5-5.1)
[2022-10-07] MEDS: INSULIN HUMULIN R 100 UNIT/ML 3ML SQ SCH ×3 (06:50→18:16)
[2022-10-07 08:30] VITALS: BP 148/74
[2022-10-07] MEDS: ENOXAPARIN SODIUM 40 MG/0.4 ML SYRINGE SQ SCH (09:00)
[2022-10-07] MEDS: PANTOPRAZOLE 40 MG/VIAL IVP SCH ×2 (09:13→21:53)
[2022-10-07] MEDS: FAMOTIDINE 20MG VIAL IV SCH (09:13)
[2022-10-07] MEDS: Vitamin B Complex/Vit C/Folic Acid PO SCH (09:14)
[2022-10-07] MEDS: METOPROLOL TARTRATE 50 MG TAB PO SCH ×2 (09:14→21:53)
[2022-10-07] MEDS: ATORVASTATIN 40 MG TABLET PO SCH (09:14)
[2022-10-07] MEDS: LACTOBACILLUS RHAMNOSUS GG 1 EACH CAP.SPRINK PO SCH (09:14)
[2022-10-07 11:50] LABS: RETICULOCYTE % (AUTO) 1.66 % (0.42-2.23)
[2022-10-07 11:52] LABS: ALBUMIN 1.2 g/dL (3.5-5.0); CREATININE 1.5 mg/dL (0.5-1.5); CRP QUANTITATIVE 135.7 mg/L (0.00-9.0); POTASSIUM 3.3 mmol/L (3.5-5.1); TOTAL PROTEIN, SERUM 5.6 g/dL (6.0-8.3)
[2022-10-07] MEDS: 0.9%NACL 1000ML 1,000 ML IV SCH ×3 (11:53→21:53)
[2022-10-07 12:06] VITALS: BP 140/76
[2022-10-07 12:29] LABS: % IRON SATURATION 14.7 % (30-44)
[2022-10-07] MEDS: FLUCONAZOLE 200 MG/NS 100 ML IV SCH (12:57)
[2022-10-07] MEDS ORDERED: IRON SUCROSE COMPLEX 500 MG in 0.9% NACL 250ML 250 ML IV ONE (16:00)
[2022-10-07 16:15] VITALS: BP 158/83
[2022-10-07] MEDS ORDERED: COMPOUND IV MISC 1 EACH IVSOLN MISC PRN (17:00)
[2022-10-07] MEDS ORDERED: M.V.I. IV [ADULT] 10 ML, MULTITRACE-4 ADULT 10ML VIAL 3 ML in CLINIMIX-E 5%AA /D15%W 2... IV ONE (18:30)
[2022-10-07 20:00] VITALS: BP 162/60
[2022-10-07] MEDS ORDERED: SODIUM HYPOCHLORITE 0.125% 473 ML SOLUTION TP SCH (21:00)
[2022-10-07] MEDS: INSULIN GLARGINE 100 UNITS/ML 10 ML VIAL SQ SCH (21:55)
[2022-10-08] VITALS: BP 144/84
[2022-10-08] MEDS: VANCOMYCIN 1.5 GM/250 ML BAG 250 ML IV SCH (00:06)
[2022-10-08] MEDS: INSULIN HUMULIN R 100 UNIT/ML 3ML SQ SCH ×4 (00:14→18:19)
[2022-10-08 04:00] VITALS: BP 162/84
[2022-10-08 04:20] LABS: BASOPHILS % (AUTO) 0.5 % (0.0-5.0); HEMATOCRIT 27.9 % (42-54); LYMPHOCYTES % (AUTO) 10.8 % (21.0-51.0); MEAN CORPUSCULAR HEMOGLOBIN 29.6 pg (27.0-33.0); MEAN CORPUSCULAR VOLUME 89.7 fL (79-99); MONOCYTES % (AUTO) 9.9 % (3.0-13.0); NEUTROPHILS % (AUTO) 75.3 % (40.0-77.0); PLATELET COUNT (AUTO) 333 K/uL (130-400); RED BLOOD CELL COUNT(AUTO) 3.11 MIL/uL (4.50-6.20); RED CELL DISTRIBUTION WIDTH 12.3 % (11.0-15.5)
[2022-10-08 04:37] LABS: ALBUMIN 1.2 g/dL (3.5-5.0); CREATININE 1.5 mg/dL (0.5-1.5); PHOSPHORUS 2.7 mg/dL (2.5-4.9); POTASSIUM 3.1 mmol/L (3.5-5.1); TOTAL PROTEIN, SERUM 5.6 g/dL (6.0-8.3)
[2022-10-08] MEDS: ZOSYN 3.375GM +NS 50ML IV SCH ×3 (05:02→21:06)
[2022-10-08] MEDS: 0.9%NACL 1000ML 1,000 ML IV SCH ×3 (07:30→21:05)
[2022-10-08 08:45] VITALS: BP 152/86
[2022-10-08] MEDS: SODIUM HYPOCHLORITE 0.125% 473 ML SOLUTION TP SCH ×2 (09:00→20:09)
[2022-10-08] MEDS: FAMOTIDINE 20MG VIAL IV SCH (09:49)
[2022-10-08] MEDS: LACTOBACILLUS RHAMNOSUS GG 1 EACH CAP.SPRINK PO SCH (09:49)
[2022-10-08] MEDS: PANTOPRAZOLE 40 MG/VIAL IVP SCH ×2 (09:50→21:06)
[2022-10-08] MEDS: ATORVASTATIN 40 MG TABLET PO SCH (09:50)
[2022-10-08] MEDS: Vitamin B Complex/Vit C/Folic Acid PO SCH (09:50)
[2022-10-08] MEDS: METOPROLOL TARTRATE 50 MG TAB PO SCH ×2 (09:50→21:06)
[2022-10-08] MEDS: ENOXAPARIN SODIUM 40 MG/0.4 ML SYRINGE SQ SCH (09:53)
[2022-10-08] MEDS: INSULIN GLARGINE 100 UNITS/ML 10 ML VIAL SQ SCH ×2 (10:16→21:07)
[2022-10-08] MEDS: POTASSIUM CHLORIDE 10MEQ/100ML 100 ML IV PRN ×2 (12:12→13:19)
[2022-10-08 12:28] VITALS: BP 156/89
[2022-10-08 16:10] VITALS: BP 166/96
[2022-10-08] MEDS ORDERED: M.V.I. IV [ADULT] 10 ML, MULTITRACE-4 ADULT 10ML VIAL 3 ML in CLINIMIX-E 5%AA /D15%W 2... IV ONE (18:00)
[2022-10-08 20:00] VITALS: BP 160/91
[2022-10-09] VITALS (7 sets, daily range): BP systolic 154–177; BP diastolic 79–98
[2022-10-09] MEDS: INSULIN HUMULIN R 100 UNIT/ML 3ML SQ SCH ×4 (00:20→18:20)
[2022-10-09] MEDS: 0.9%NACL 1000ML 1,000 ML IV SCH ×4 (02:34→23:30)
[2022-10-09] MEDS: ZOSYN 3.375GM +NS 50ML IV SCH ×3 (04:51→21:00)
[2022-10-09 08:08] LABS: POTASSIUM 3.5 mmol/L (3.5-5.1)
[2022-10-09] MEDS: LACTOBACILLUS RHAMNOSUS GG 1 EACH CAP.SPRINK PO SCH (10:31)
[2022-10-09] MEDS: FAMOTIDINE 20MG VIAL IV SCH (10:31)
[2022-10-09] MEDS: ENOXAPARIN SODIUM 40 MG/0.4 ML SYRINGE SQ SCH (10:31)
[2022-10-09] MEDS: Vitamin B Complex/Vit C/Folic Acid PO SCH (10:31)
[2022-10-09] MEDS: PANTOPRAZOLE 40 MG/VIAL IVP SCH ×2 (10:31→22:01)
[2022-10-09] MEDS: ATORVASTATIN 40 MG TABLET PO SCH (10:32)
[2022-10-09] MEDS: METOPROLOL TARTRATE 50 MG TAB PO SCH ×2 (10:32→22:03)
[2022-10-09] MEDS: INSULIN GLARGINE 100 UNITS/ML 10 ML VIAL SQ SCH ×2 (10:44→22:04)
[2022-10-09] MEDS: SODIUM HYPOCHLORITE 0.125% 473 ML SOLUTION TP SCH ×2 (12:08→22:43)
[2022-10-09] MEDS: FAT EMULSIONS 20% 250ML 250 ML IV SCH (13:51)
[2022-10-09] MEDS ORDERED: M.V.I. IV [ADULT] 10 ML, MULTITRACE-4 ADULT 10ML VIAL 3 ML in CLINIMIX-E 5%AA /D15%W 2... IV ONE (17:00)
[2022-10-09] MEDS: VANCOMYCIN 1.5 GM/250 ML BAG 250 ML IV SCH (22:58)
[2022-10-10] MEDS: INSULIN HUMULIN R 100 UNIT/ML 3ML SQ SCH (00:01)
== END 2022-10-10 00:59 | DRG 853 ==
LOC: EDH 19:05 → OBSVTOIN 19:06 → EDHIP 19:06 → INTOOBSV 19:06 → 3DH 09-22 02:01
PROVIDERS: ADMIT Internal Medicine; ATTEND Internal Medicine
PROC: 0WJG0ZZ Inspection of Peritoneal Cavity, Open Approach (ICD-10-PCS; 2022-09-25)
PROC: 0DTA0ZZ Resection of Jejunum, Open Approach (ICD-10-PCS; 2022-09-25)
PROC: 0FT40ZZ Resection of Gallbladder, Open Approach (ICD-10-PCS; principal; 2022-09-25 11:11)
PROC: 0DQM0ZZ Repair Descending Colon, Open Approach (ICD-10-PCS; 2022-09-30)
PROC: 0D9680Z Drainage of Stomach with Drainage Device, Via Natural or Artificial Opening Endoscopic (ICD-10-PCS; 2022-10-02)
DX: A41.50 Gram-negative sepsis, unspecified (principal); K26.5 Chronic or unspecified duodenal ulcer with perforation; K65.0 Generalized (acute) peritonitis; K56.3 Gallstone ileus; K56.609 Unspecified intestinal obstruction, unspecified as to partial versus complete obstruction; K80.00 Calculus of gallbladder with acute cholecystitis without obstruction; N39.0 Urinary tract infection, site not specified; T81.30XA Disruption of wound, unspecified, initial encounter; E87.1 Hypo-osmolality and hyponatremia; E87.20 Acidosis, unspecified; K91.89 Other postprocedural complications and disorders of digestive system; Z20.822 Contact with and (suspected) exposure to COVID-19; E78.00 Pure hypercholesterolemia, unspecified; E11.65 Type 2 diabetes mellitus with hyperglycemia; D64.9 Anemia, unspecified; E87.6 Hypokalemia; E11.621 Type 2 diabetes mellitus with foot ulcer; R09.02 Hypoxemia; E66.01 Morbid (severe) obesity due to excess calories; I10 Essential (primary) hypertension; M19.90 Unspecified osteoarthritis, unspecified site; Z74.01 Bed confinement status; Z79.82 Long term (current) use of aspirin; Z79.84 Long term (current) use of oral hypoglycemic drugs; Z86.73 Personal history of transient ischemic attack (TIA), and cerebral infarction without residual deficits; Z96.653 Presence of artificial knee joint, bilateral; Y83.8 Other surgical procedures as the cause of abnormal reaction of the patient, or of later complication, without mention of misadventure at the time of the procedure
CPT/HCPCS: 36415; 36600; 71045; 74018; 74176; 74177; 74240; 78226; 80048; 80053; 80061; 80202; 81001; 82010; 82550; 82607; 82728; 82746; 82803; 82948; 83036; 83540; 83550; 83605; 83690; 83735; 83880; 84100; 84132; 84145; 84484; 85025; 85027; 85045; 85610; 85651; 85730; 86140; 86850; 86900; 86901; 87040; 87077; 87088; 87186; 87324; 87635; 93005; 93970; 97039; A4344; A9537; C1894; C9113; G0378; J0330; J1170; J1450; J1630; J1650; J1756; J1815; J1885; J2250; J2270; J2370; J2405; J2543; J2704; J2710; J2765; J3010; J3230; J3475; J3480; J3490; J7030; J7050; J7120; P9045; Q9963; Q9967

== ENCOUNTER 2024-01-23 20:15 | Emergency (ER) | payer BC, OTHER ==
[~2024-01-23] VITALS: Ht 177.8 cm; Wt 117.5 kg
[~2024-01-23 20:15] MED LIST changes: +ATOR40TA69 PO; -DICL100T85 PO; +HYDR12.54 PO; -IRBE150T51 PO; +METO50TA18 PO
[2024-01-23 21:43] LABS: APPEARANCE,URINE CLEAR (CLEAR); BILIRUBIN,URINE NEGATIVE (NEGATIVE); COLOR,URINE YELLOW (YELLOW); GLUCOSE, URINE (UA) 300 mg/dL (NEGATIVE); KETONES,URINE NEGATIVE (NEGATIVE); LEUKOCYTE ESTERASE ,URINE 25 Leu/uL (NEGATIVE); NITRATE,URINE NEGATIVE (NEGATIVE); OCCULT BLOOD,URINE MODERATE (NEGATIVE); PH,URINE 5.5 (5.0-8.0); PROTEIN,URINE 100 mg/dL (NEGATIVE); UROBILINOGEN,URINE 0.2 mg/dL (0.2-1.0)
[2024-01-23 21:45] LABS: ADD UA MICROSCOPIC YES
[2024-01-23 21:50] LABS: BACTERIA,URINE MOD /HPF (None Seen); MUCUS,URINE RARE LPF (None Seen); RBC,URINE 26-50 /HPF (0-1); SQUAMOUS EPITHELIAL CELL,UR FEW /HPF (0-2)
[2024-01-23 21:51] LABS: BASOPHILS # (AUTO) 0.05 K/uL (0.00-0.20); BASOPHILS % (AUTO) 0.4 % (0.0-5.0); EOSINOPHILS # (AUTO) 0.11 K/uL (0.00-0.70); HEMATOCRIT 44.7 % (42-54); IMMATURE GRANULOCYTE ABSOLUTE 0.05 K/uL (0-1); LYMPHOCYTES # (AUTO) 0.8 K/uL (1.0-4.8); LYMPHOCYTES % (AUTO) 6.9 % (21.0-51.0); MEAN CORPUSCULAR HEMOGLOBIN 30.9 pg (27.0-33.0); MEAN CORPUSCULAR HGB CONC 34.7 g/dL (32.0-36.0); MEAN CORPUSCULAR VOLUME 89.2 fL (79-99); MONOCYTES # (AUTO) 0.7 K/uL (0.1-1.0); MONOCYTES % (AUTO) 6.4 % (3.0-13.0); NEUTROPHILS # (AUTO) 9.4 K/uL (1.8-7.7); NEUTROPHILS % (AUTO) 84.9 % (40.0-77.0); PLATELET COUNT (AUTO) 188 K/uL (130-400); RED BLOOD CELL COUNT(AUTO) 5.01 MIL/uL (4.50-6.20); RED CELL DISTRIBUTION WIDTH 12.3 % (11.0-15.5); WHITE BLOOD COUNT (AUTO) 11.1 K/uL (4.8-10.8)
[2024-01-23 21:56] LABS: CREATININE 1.4 mg/dL (0.5-1.3); POTASSIUM 3.5 mmol/L (3.5-5.1)
[2024-01-23 22:00] LABS: ALBUMIN 3.8 g/dL (3.5-5.0); BILIRUBIN,TOTAL 1.9 mg/dL (0.2-1.0)
[2024-01-24] MEDS: CEFTRIAXONE 1G VIAL IM ONE (01:28)
[2024-01-24] MEDS: 0.9%NACL 1000ML 1,000 ML IV ONE (01:28)
[2024-01-24] MEDS ORDERED: IOHEXOL 350 MG/ML 100ML INFUS..BTL IV ONE (01:46)
[2024-01-24] MEDS ORDERED: CEFU500T67 PO (05:13)
[2024-01-24] MEDS ORDERED: IBUP-1493 PO (05:13)
[2024-01-24 05:26] VITALS: BP 132/79; PULSE 73; RESP 18; O2SAT 96
== END 2024-01-24 05:28 | disposition home or self-care (01) ==
LOC: EDH 20:15
DX: N39.0 Urinary tract infection, site not specified (principal); R65.10 Systemic inflammatory response syndrome (SIRS) of non-infectious origin without acute organ dysfunction; E11.9 Type 2 diabetes mellitus without complications; E78.00 Pure hypercholesterolemia, unspecified; I10 Essential (primary) hypertension; Z79.899 Other long term (current) drug therapy; Z90.49 Acquired absence of other specified parts of digestive tract
CPT/HCPCS: 99285; 74178; 76705; 80053; 83690; 85025; 87040 ×2; 87077; 87088; 87186; 83605; 81001; 36415; 96360; 96361; 96372; J7030; J0696; Q9967

== ENCOUNTER 2024-05-27 21:49 | Emergency (ER) | payer OTHER ==
[~2024-05-27] VITALS: Ht 177.8 cm; Wt 117.9 kg
[~2024-05-27 21:49] MED LIST changes: +CEFU500T67 PO; +IBUP-1493 PO
[2024-05-27 22:15] LABS: BASOPHILS # (AUTO) 0.06 K/uL (0.00-0.20); BASOPHILS % (AUTO) 0.7 % (0.0-5.0); EOSINOPHILS # (AUTO) 0.28 K/uL (0.00-0.70); EOSINOPHILS % (AUTO) 3.3 % (0.0-8.0); HEMATOCRIT 42.2 % (42-54); IMMATURE GRANULOCYTE ABSOLUTE 0.02 K/uL (0-1); LYMPHOCYTES # (AUTO) 2.2 K/uL (1.0-4.8); LYMPHOCYTES % (AUTO) 25.6 % (21.0-51.0); MEAN CORPUSCULAR HEMOGLOBIN 30.5 pg (27.0-33.0); MEAN CORPUSCULAR HGB CONC 35.3 g/dL (32.0-36.0); MEAN CORPUSCULAR VOLUME 86.3 fL (79-99); MONOCYTES # (AUTO) 0.7 K/uL (0.1-1.0); MONOCYTES % (AUTO) 7.9 % (3.0-13.0); NEUTROPHILS # (AUTO) 5.3 K/uL (1.8-7.7); NEUTROPHILS % (AUTO) 62.3 % (40.0-77.0); PLATELET COUNT (AUTO) 212 K/uL (130-400); RED BLOOD CELL COUNT(AUTO) 4.89 MIL/uL (4.50-6.20); RED CELL DISTRIBUTION WIDTH 12.4 % (11.0-15.5); WHITE BLOOD COUNT (AUTO) 8.6 K/uL (4.8-10.8)
[2024-05-27 22:31] LABS: CREATININE 1.8 mg/dL (0.5-1.3); POTASSIUM 4.3 mmol/L (3.5-5.1)
[2024-05-27] MEDS: ONDANSETRON 4MG INJ IVP ONE (22:50)
[2024-05-27] MEDS: MORPHINE 2 MG SYG IVP ONE (22:50)
[2024-05-27] MEDS: PANTOPRAZOLE 40 MG/VIAL IVP ONE (22:50)
[2024-05-27] MEDS: 0.9%NACL 1000ML 1,000 ML IV ONE (23:13)
[2024-05-27] MEDS: INSULIN humuLIN R 100 UNIT/ML 3ML SQ ONE (23:16)
[2024-05-27 23:49] LABS: APPEARANCE,URINE CLEAR (CLEAR); BILIRUBIN,URINE NEGATIVE (NEGATIVE); COLOR,URINE COLORLESS (YELLOW); GLUCOSE, URINE (UA) >=1000 mg/dL (NEGATIVE); KETONES,URINE NEGATIVE (NEGATIVE); LEUKOCYTE ESTERASE ,URINE NEGATIVE Leu/uL (NEGATIVE); NITRATE,URINE NEGATIVE (NEGATIVE); PROTEIN,URINE NEGATIVE (NEGATIVE); UROBILINOGEN,URINE 0.2 mg/dL (0.2-1.0)
[2024-05-27 23:57] LABS: ADD UA MICROSCOPIC YES; BACTERIA,URINE RARE /HPF (None Seen); RBC,URINE 0-1 /HPF (0-1); SQUAMOUS EPITHELIAL CELL,UR RARE /HPF (0-2)
[2024-05-28] MEDS: INSULIN humuLIN R 100 UNIT/ML 3ML SQ ONE (01:25)
[2024-05-28] MEDS: INSULIN humuLIN R 100 UNIT/ML 3ML IV ONE ×2 (03:56→04:39)
[2024-05-28 05:01] VITALS: BP 145/65; PULSE 75; RESP 18; O2SAT 99
== END 2024-05-28 05:05 | disposition home or self-care (01) ==
LOC: EDH 21:49
DX: R10.30 Lower abdominal pain, unspecified (principal); E11.9 Type 2 diabetes mellitus without complications; E78.00 Pure hypercholesterolemia, unspecified; I10 Essential (primary) hypertension; R06.02 Shortness of breath; Z79.1 Long term (current) use of non-steroidal anti-inflammatories (NSAID); Z79.899 Other long term (current) drug therapy; Z90.49 Acquired absence of other specified parts of digestive tract
CPT/HCPCS: 99284; 96361; 96374; 96375 ×2; 80048; 83690; 85025; 87086 ×2; 87186; 82948 ×3; 82010; 81001; 36415 ×2; 96376; J1815 ×4; J2270; J7030; J2405; J2470

== ENCOUNTER 2025-07-15 15:50 | Emergency (ER) | payer OTHER ==
[~2025-07-15] VITALS: Ht 177.8 cm; Wt 110.7 kg
[2025-07-15 16:32] LABS: APPEARANCE,URINE CLEAR (CLEAR); GLUCOSE, URINE (UA) >=1000 mg/dL (NEGATIVE); LEUKOCYTE ESTERASE ,URINE 250 Leu/uL (NEGATIVE); NITRATE,URINE NEGATIVE (NEGATIVE); OCCULT BLOOD,URINE SMALL (NEGATIVE)
[2025-07-15 16:38] LABS: IMMATURE GRANULOCYTE ABSOLUTE 0.04 K/uL (0-1); NUCLEATED RED BLOOD CELLS 0.0 % (0.0-0.19); PLATELET COUNT (AUTO) 210 K/uL (130-400); RED BLOOD CELL COUNT(AUTO) 5.42 MIL/uL (4.50-6.20); RED CELL DISTRIBUTION WIDTH 13.8 % (11.0-15.5); WHITE BLOOD COUNT (AUTO) 12.1 K/uL (4.8-10.8)
[2025-07-15 16:40] LABS: ADD UA MICROSCOPIC YES
[2025-07-15 16:47] LABS: CREATININE 1.3 mg/dL (0.5-1.3); GLOMERULAR FILTR. RATE CALC 61.0 mL/min (>90); GLUCOSE,RANDOM 190.0 mg/dL (70-105); SODIUM SERUM 144.0 mmol/L (136-145); UREA NITROGEN, BLOOD 30.0 mg/dL (7-18)
[2025-07-15 16:52] LABS: ASPARTATE AMINOTRANSFERASE 17.0 U/L (10-37); TOTAL PROTEIN, SERUM 7.9 g/dL (6.0-8.3)
[2025-07-15 16:52] LABS: SQUAMOUS EPITHELIAL CELL,UR FEW /HPF (0-2)
[2025-07-15] MEDS ORDERED: IOHEXOL-350 75 ML VIAL IV ONE (17:25)
[2025-07-15] MEDS: 0.9%NACL 1000ML 1,000 ML IV STA (17:52)
[2025-07-15] MEDS: FAMOTIDINE 20MG VIAL IV ONE (17:52)
[2025-07-15 18:17] VITALS: BP 132/85; PULSE 75; RESP 20; TEMP 98.2; O2SAT 100
--- NOTE | 2025-07-15 18:39 | HMCIMG ---
EXAM: CT Abdomen and Pelvis With Intravenous Contrast CLINICAL HISTORY: 64 year old male with abdominal pain and soft tissue symptoms. TECHNIQUE: Axial computed tomography images of the abdomen and pelvis with intravenous contrast. Dose reduction technique was used including one or more of the following: automated exposure control, adjustment of mA and kV according to patient size, and/or iterative reconstruction. CONTRAST: With Intravenous Contrast COMPARISON: CT Abdomen and Pelvis With and Without IV Contrast from 01/24/2024 at 1:55 AM. FINDINGS: LUNG BASES: No basilar airspace consolidation or pleural effusion. LIVER: Unremarkable. GALLBLADDER AND BILE DUCTS: Status post cholecystectomy, with cholecystectomy clips present. No ductal dilation. PANCREAS: Unremarkable. SPLEEN: Unremarkable. ADRENAL GLANDS: Unremarkable. KIDNEYS, URETERS, AND BLADDER: A small right renal cyst is present, for which follow-up ultrasound is recommended. No hydronephrosis or nephrolithiasis. No ureteral or bladder calculi. STOMACH AND BOWEL: A large amount of stool is present in the colon. Edema with loops of small bowel suggesting mild small bowel enteritis. APPENDIX: No CT evidence for appendicitis. PERITONEUM: No free fluid. No free air. LYMPH NODES: No lymphadenopathy. REPRODUCTIVE: Unremarkable as visualized. VASCULATURE: No aortic aneurysm. ABDOMINAL WALL AND SOFT TISSUES: Mild protrusion of the anterior abdominal wall with loops of small bowel, which should be correlated clinically. The anterior abdominal wall protrusion is similar to prior studies. BONES: No fracture or suspicious osseous abnormality. IMPRESSION: 1. Edema with loops of small bowel suggesting mild small bowel enteritis. 2. Mild protrusion of the anterior abdominal wall with loops of small bowel, correlate clinically. 3. Large amount of stool in the colon. 4. Chronic findings similar to prior CT Abdomen and Pelvis With and Without IV Contrast from 01/24/2024 at 1:55 AM. /[place]
--- NOTE | 2025-07-15 19:07 | ERN ---
ED Note History of Present Illness Stated Complaint: ABD PAIN Chief Complaint: Abdominal Pain Time Seen by MD: 15:59 Time Seen by Midlevel: 16:02 Dictation: 64-year-old male with a history of diabetes, hypertension and cholesterol coming in with complaints of abdominal pain and vomiting x1 this morning. Denies having any chest pain or chest discomfort. Denies having any fever, cough or congestion. Denies any diarrhea. Patient states last bowel movement was yesterday and was normal. Denies any blood in emesis. Allergies: Coded Allergies: No Known Drug Allergies (Verified Allergy, Unknown, 09/22/17) Home Meds Active Scripts Ibuprofen (Motrin/Advil) 800 Mg Tab, 800 MG PO TID, #30 TAB Prov:BARBARA DAILEY MD 01/24/24 Cefuroxime Axetil (Cefuroxime) 500 Mg Tablet, 500 MG PO BID, #20 TAB Prov:BARBARA DAILEY MD 01/24/24 Reported Medications Metoprolol Tartrate (Metoprolol Tartrate) 50 Mg Tablet, 50 MG PO BID, TAB 09/22/22 Atorvastatin Calcium (LIPITOR) 40 Mg Tablet, 40 MG PO DAILY, TAB 09/22/22 Hydrochlorothiazide (Hydrochlorothiazide) 12.5 Mg Tablet, 12.5 MG PO DAILY, TAB 09/22/22 Past Medical History Past Medical History: Diabetes-Type II, High Cholesterol, Hypertension Surgical History: Other Surgical History Other: ABD SX, BILAT KNEE SX Social History: Negative, Lives with family Review of System Dictation Constitutional: Negative for fever,chills, and weight loss Eyes: Negative for injury, pain,redness, and discharge ENT: Negative for injury,pain or swelling Cardiovascular: Negative for chest pain, palpitations, and edema Respiratory: Negative for shortness of breath, cough, and wheezing, Abdomen/GI: Abdominal pain, nausea, vomiting, Back: Negative for injury and pain : Negative for injury, bleeding and discharge MS/Extremity: Negative for injury and deformity Skin: Negative for rash, and discoloration Neuro: Negative for headache, weakness, numbness, tingling, and seizure Psych: Negative for suicide ideation, homicidal ideation, and hallucinations Review of Systems: was completed Initial Vital Sign VS Vital Signs Date Time Temp Pulse Resp B/P (MAP) Pulse Ox O2 Delivery O2 Flow Rate FiO2 07/15/25 15:53 97.2 95 18 159/99 97 Room Air 0 07/15/25 16:05 21 Physical Exam Dictation General: awake, alert, NAD Head/Face: Normocephalic, atraumatic Eyes: PERRL, EOMI, vision at baseline ENT: oral cavity clear, TMs clear, no signs of infection Neck: Trachea midline, supple, no nuchal rigidity Cardiovascular: RRR, normal S1/S2, No MRGs, no JVD Respiratory: CTAB, no respiratory distress, No rales or wheezes Abdomen: Soft, non-tender, non-distended, normal bowel sounds, no guarding or rebound. Precordial noted about umbilical area, patient states this is his baseline due to a previous surgeries and hernia. Skin: Warm, dry, normal turgor, no rash MS/Extremity: Pulses equal, no cyanosis, neurovascular intact, FROM Neuro: COAx4, GCS 15, strength 5/5, CN 2-12 intact, normal cerebellar exam, normal gait, Psych: Normal behavior, mood, and affect normal Results (Laboratory/Radiology) Laboratory/Radiology Laboratory Tests Test 07/15/25 16:00 07/15/25 16:27 Urine Color LIGHT-YELLOW (YELLOW) Urine Appearance CLEAR (CLEAR) Urine pH 5.0 (5.0-8.0) Urine Specific Clarissa 1.042 (1.001-1.031) Urine Protein 10 mg/dL (NEGATIVE) H Urine Glucose (UA) >=1000 mg/dL (NEGATIVE) H Urine Ketones 5 mg/dL (NEGATIVE) H Urine Occult Blood SMALL (NEGATIVE) H Urine Nitrate NEGATIVE (NEGATIVE) Urine Bilirubin NEGATIVE mg/dL (NEGATIVE) Urine Urobilinogen 0.2 mg/dL (0.2-1.0) Urine Leukocyte Esterase 250 Soha/uL (NEGATIVE) H Urine RBC 6-10 /HPF (0-1) H Urine WBC 6-10 /HPF (0-1) H Urine Squamous Epithelial Cells FEW /HPF (0-2) Urine Bacteria RARE /HPF (None Seen) White Blood Count 12.1 K/uL (4.8-10.8) H Red Blood Count 5.42 MIL/uL (4.50-6.20) Hemoglobin 16.6 g/dL (14.0-18.0) Hematocrit 50.1 % (42-54) Mean Corpuscular Volume 92.4 fL (79-99) Mean Corpuscular Hemoglobin 30.6 pg (27.0-33.0) Mean Corpuscular Hemoglobin Concent 33.1 g/dL (32.0-36.0) Red Cell Distribution Width 13.8 % (11.0-15.5) Platelet Count 210 K/uL (130-400) Mean Platelet Volume 10.6 fL (7.5-10.5) H Immature Granulocyte % (Auto) 0.3 % (0-1) Neutrophils (%) (Auto) 79.7 % (40.0-77.0) H Lymphocytes (%) (Auto) 11.9 % (21.0-51.0) L Monocytes (%) (Auto) 7.1 % (3.0-13.0) Eosinophils (%) (Auto) 0.7 % (0.0-8.0) Basophils (%) (Auto) 0.3 % (0.0-5.0) Neutrophils # (Auto) 9.6 K/uL (1.8-7.7) H Lymphocytes # (Auto) 1.4 K/uL (1.0-4.8) Monocytes # (Auto) 0.9 K/uL (0.1-1.0) Eosinophils # (Auto) 0.09 K/uL (0.00-0.70) Basophils # (Auto) 0.04 K/uL (0.00-0.20) Absolute Immature Granulocyte (auto 0.04 K/uL (0-1) Nucleated Red Blood Cells 0.0 % (0.0-0.19) Sodium Level 144 mmol/L (136-145) Potassium Level 4.0 mmol/L (3.5-5.1) Chloride Level 102 mmol/L (101-111) Carbon Dioxide Level 29 mmol/L (21-32) Blood Urea Nitrogen 30 mg/dL (7-18) H Creatinine 1.3 mg/dL (0.5-1.3) Glomerular Filtration Rate Calc 61 mL/min (>90) Random Glucose 190 mg/dL (70-105) H Total Calcium 9.1 mg/dL (8.5-10.1) Total Bilirubin 1.6 mg/dL (0.2-1.0) H Direct Bilirubin 0.3 mg/dL (0.0-0.3) Aspartate Amino Transf (AST/SGOT) 17 U/L (10-37) Alanine Aminotransferase (ALT/SGPT) 35 U/L (12-78) Alkaline Phosphatase 90 U/L (50-136) Troponin I High Sensitivity 22 ng/L (4-75) Total Protein 7.9 g/dL (6.0-8.3) Albumin 3.9 g/dL (3.5-5.0) Lipase 222 U/L (16-77) H Labs Reviewed?: Yes CT Scan Comment: [facility] [address] [place] [address] IMAGING REPORT Signed PATIENT: MANISH MOHAMUD MR#: [id number] : 1960 SEX: M AGE: 64 LOCATION: [facility] ORDER 07 STATUS: [facility] REPORT#: [id number] SERVICE 06 REASON: abdominal pain, n/v ORDERING PHYSICIAN: ANASTASIA HARGROVE PROCEDURE: ABD PEL W - CT ABDOMEN/PELVIS W/CONTRAST EXAM: CT Abdomen and Pelvis With Intravenous Contrast CLINICAL HISTORY: 64 year old male with abdominal pain and soft tissue symptoms. TECHNIQUE: Axial computed tomography images of the abdomen and pelvis with intravenous contrast. Dose reduction technique was used including one or more of the following: automated exposure control, adjustment of mA and kV according to patient size, and/or iterative reconstruction. CONTRAST: With Intravenous Contrast COMPARISON: CT Abdomen and Pelvis With and Without IV Contrast from 01/24/2024 at 1:55 AM. FINDINGS: LUNG BASES: No basilar airspace consolidation or pleural effusion. LIVER: Unremarkable. GALLBLADDER AND BILE DUCTS: Status post cholecystectomy, with cholecystectomy clips present. No ductal dilation. PANCREAS: Unremarkable. SPLEEN: Unremarkable. ADRENAL GLANDS: Unremarkable. KIDNEYS, URETERS, AND BLADDER: A small right renal cyst is present, for which follow-up ultrasound is recommended. No hydronephrosis or nephrolithiasis. No ureteral or bladder calculi. STOMACH AND BOWEL: A large amount of stool is present in the colon. Edema with loops of small bowel suggesting mild small bowel enteritis. APPENDIX: No CT evidence for appendicitis. PERITONEUM: No free fluid. No free air. LYMPH NODES: No lymphadenopathy. REPRODUCTIVE: Unremarkable as visualized. VASCULATURE: No aortic aneurysm. ABDOMINAL WALL AND SOFT TISSUES: Mild protrusion of the anterior abdominal wall with loops of small bowel, which should be correlated clinically. The anterior abdominal wall protrusion is similar to prior studies. BONES: No fracture or suspicious osseous abnormality. IMPRESSION: 1. Edema with loops of small bowel suggesting mild small bowel enteritis. 2. Mild protrusion of the anterior abdominal wall with loops of small bowel, correlate clinically. 3. Large amount of stool in the colon. 4. Chronic findings similar to prior CT Abdomen and Pelvis With and Without IV Contrast from 01/24/2024 at 1:55 AM. /[place] DICTATED BY: SEVEN SLADE MD DATE: 07/15/251938 ELECTRONICALLY SIGNED BY: SEVEN SLADE MD DATE: 07/15/251938 ED Course ED Course Orders Procedure Category Date Status Time Cbc With Differential LAB 07/15/25 Complete 16:07 Basic Metabolic Panel LAB 07/15/25 Complete 16:07 Hepatic Function Panel LAB 07/15/25 Complete 16:07 Lipase LAB 07/15/25 Complete 16:07 Ct Abdomen/Pelvis CT 07/15/25 Resulted W/Contrast 16:07 Urinalysis Profile LAB 07/15/25 Complete 16:07 12 Lead Ekg Tracing- EKG 07/15/25 Logged Technical 16:08 Troponin I High LAB 07/15/25 Complete Sensitivity 16:08 0.9%Nacl 1000ml (Ns PHA 07/15/25 Complete 1000ml) 16:08 Ondansetron 4mg Inj PHA 07/15/25 Complete (Zofran 4mg Inj) 16:30 Famotidine 20mg Vial PHA 07/15/25 Complete (Pepcid 20mg Vial) 16:30 Ketorolac PHA 07/15/25 Complete Tromethamine 15mg/Ml 16:30 Culture Urine PRAVIN 07/15/25 In Process 16:41 Iohexol (Omnipaque) PHA 07/15/25 Complete 17:25 Current Medications Medications (Trade) Dose Ordered Sig/Reagan Route PRN Reason Start Time Stop Time Status Last Admin Dose Admin Famotidine (Pepcid 20mg Vial) 20 mg ONCE ONCE IV 07/15/25 16:30 07/15/25 16:31 DC 07/15/25 17:52 Iohexol (Omnipaque) 75 ml STK-MED ONCE IV 07/15/25 17:25 07/15/25 17:25 DC Ketorolac Tromethamine (toRADol) 15 mg ONCE ONCE IV 07/15/25 16:30 07/15/25 16:31 DC 07/15/25 16:30 Ondansetron HCl (zoFRAN 4MG INJ) 4 mg ONCE ONCE IVP 07/15/25 16:30 07/15/25 16:31 DC 07/15/25 17:52 Sodium Chloride 1,000 ml @ 1,000 mls/hr Q1H STAT IV 07/15/25 16:08 07/15/25 17:07 DC 07/15/25 17:52 Vital Signs Date Time Temp Pulse Resp B/P (MAP) Pulse Ox O2 Delivery O2 Flow Rate FiO2 07/15/25 18:17 98.2 75 20 132/85 100 Room Air* 0 21 07/15/25 16:05 98.2 83 19 107/20 100 Room Air* 0 21 07/15/25 15:53 97.2 95 18 159/99 97 Room Air 0 Medical Decision Making MDM MDM: 64-year-old male with a history of diabetes, hypertension and cholesterol coming in with complaints of abdominal pain and vomiting x1 this morning. Denies having any chest pain or chest discomfort. Denies having any fever, cough or congestion. Denies any diarrhea. Patient states last bowel movement was yesterday and was normal. Denies any blood in emesis.CBC shows white count of , no anemia, no thrombocytopenia. Chemistry shows no electrolyte abnormality. Normal kidney function. Elevated glucose level of 190. No transaminitis. Lipase is222 and T bili is 1.6. UA shows no evidence of urinary tract infection. CT scan of the abdomen been shows liver unremarkable. No ductal dilation. Status post cholecystectomy. Unremarkable pancreas. Large amount of stool present: Edema with loops of small bowel suggesting mild small bowel enteritis. Protrusion of the anterior abdominal wall with loops of small bowel it this is similar to prior studies. Discussed findings patient. Educated patient more than likely he has been gastroenteritis from what he had for dinner last night. Educated that he needs to keep hydrated and avoiding spicy, greasy, fried food. Patient verbalized understanding, answered all questions. Also educated to follow up with the PCP in 1-2 days. Differential diagnosis: Pancreatitis, gastroenteritis, SBO Rationale: Tests considered and ordered secondary to shared decision making include: Previous outside records reviewed: Old ER visits. Risk of complication and/or morbidity or mortality of patient management: None Medications-Per medication reconciliation Need for hospitalization: Patient does not meet criteria for hospitalization. Need for emergency major/minor surgery: No There are no social concerns with this patient. Prescription drug management Prescriptions will include symptomatic care Patient's prior external medical records from other ER visits were reviewed by me as indicated. Prior testing and results from previous visits were reviewed. Prior tests were taken into account with medical decision making and resource utilization, independent historian/historians were used to obtain complete medical history. I independently interpreted the test that were performed, results were reviewed by me and considered findings on radiology if ordered. Medical management and examination interpretation discussions were had by me with other qualified healthcare professionals as indicated for the patient's care. DX & DISP Disposition: Discharge Departure Impression: Primary Impression: Enteritis Condition: Stable Additional Instructions: You can scan does not show any small bowel obstruction. Your CT scan is showing some enteritis visibly inflammation of your colon. You need to stay hydrated, avoid any spicy, greasy , fried food or fatty foods. Start off with a bland diet and increase as tolerated. Follow up with your primary care provider in 1- 2 days. Return to the hospital if you have any worsening symptoms. You can add probiotics [id number] to help with the your intestinal floor. Referrals: SAYDA CALLOWAY MD (PCP) Time of Disposition: 19:05 I have reviewed the case, and I agree with, Diagnosis and Plan ANASTASIA HARGROVE Jul 15, 2025 19:07 ROBERT FRAZIER DO Jul 15, 2025 19:14
--- NOTE | 2025-07-15 20:15 | EKG ---
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
== END 2025-07-15 19:16 | disposition home or self-care (01) ==
LOC: EDH 15:50
DX: K52.9 Noninfective gastroenteritis and colitis, unspecified (principal); E11.9 Type 2 diabetes mellitus without complications; E78.00 Pure hypercholesterolemia, unspecified; I10 Essential (primary) hypertension; Z79.1 Long term (current) use of non-steroidal anti-inflammatories (NSAID); Z79.899 Other long term (current) drug therapy; Z98.890 Other specified postprocedural states; Z90.49 Acquired absence of other specified parts of digestive tract
CPT/HCPCS: 99285; 74177; 96374; 96375; 80076; 84484; 80048; 83690; 85025; 87086; 81001; 36415; 93005; J1885; J1308; J7030; J2405; Q9967